=== PATIENT | male | born 2000 | race Caucasian/White ===

== ENCOUNTER 2018-08-03 07:29 | Emergency (ER) | payer SELFPAY ==
[~2018-08-03] VITALS: Ht 195.6 cm; Wt 136.4 kg
[~2018-08-03 07:29] MED LIST: A/B OTIC AS; AMOXICILLI125 MG/5 M OR; AMOXICILLIN500 MG PO; AUGMENTIN875TAB OR; CIPRODEX1 ML AS; CLINDAMYCIN300 M1 PO; FLUCONAZOLE100 MG PO; GARDASIL IM; HAVRIX720 UNI1 IM; MENACTRA PO; MOTRIN400 MG PO; MUPIROCIN2 % EX; OMNICEF300 MG OR; SEPTRA DS1 TAB PO; TAM75CAP PO; TET/DIP TOX1 ML IM; ULTRAM50 M1 PO
[2018-08-03] MEDS ORDERED: CLEOCIN150 MG PO (08:33)
== END 2018-08-03 08:42 | disposition home or self-care (01) | DRG 605 ==
LOC: ED 07:29
PROC: 0HQNXZZ Repair Left Foot Skin, External Approach (ICD-10-PCS; principal; 2018-08-03)
DX: S91.312A Laceration without foreign body, left foot, initial encounter (principal); F17.210 Nicotine dependence, cigarettes, uncomplicated; W26.8XXA Contact with other sharp object(s), not elsewhere classified, initial encounter

== ENCOUNTER 2019-05-19 11:47 | Emergency (ER) | payer SELFPAY ==
[~2019-05-19] VITALS: Ht 195.6 cm; Wt 166.0 kg
[~2019-05-19 11:47] MED LIST changes: +CLEOCIN150 MG PO
[2019-05-19] MEDS ORDERED: MEDDOSEPAK PO (12:54)
[2019-05-19 13:10] VITALS: BP 139/74
== END 2019-05-19 13:10 | disposition home or self-care (01) | DRG 552 ==
LOC: ED 11:47
DX: M54.42 Lumbago with sciatica, left side (principal); F17.290 Nicotine dependence, other tobacco product, uncomplicated

== ENCOUNTER 2020-04-30 11:02 | Emergency (ER) | payer MEDICAID ==
[~2020-04-30 11:02] MED LIST changes: +MEDDOSEPAK PO
[2020-04-30] MEDS ORDERED: CEPHALEXIN500 MG PO (11:41)
[2020-04-30] MEDS ORDERED: BACTRIM DS1 TAB PO (11:41)
[2020-04-30 11:52] VITALS: BP 142/80
== END 2020-04-30 11:52 | disposition home or self-care (01) ==
LOC: ED 11:02
DX: L03.012 Cellulitis of left finger (principal); F17.200 Nicotine dependence, unspecified, uncomplicated

== ENCOUNTER 2020-05-03 08:23 | Emergency (ER) | payer MEDICAID ==
[~2020-05-03] VITALS: Ht 195.6 cm; Wt 136.4 kg
[~2020-05-03 08:23] MED LIST changes: +BACTRIM DS1 TAB PO; +CEPHALEXIN500 MG PO
[2020-05-03 09:00] VITALS: BP 142/92
== END 2020-05-03 09:00 | disposition home or self-care (01) ==
LOC: ED 08:23
DX: L03.012 Cellulitis of left finger (principal); F17.200 Nicotine dependence, unspecified, uncomplicated

== ENCOUNTER 2021-10-04 09:16 | Emergency (ER) | payer OTHER, MEDICAID ==
[~2021-10-04] VITALS: Ht 195.6 cm; Wt 150.0 kg
[2021-10-04 09:16] VITALS: BP 145/84
[2021-10-04] MEDS ORDERED: CEPHALEXIN500 MG PO (10:06)
== END 2021-10-04 10:26 | disposition home or self-care (01) | DRG 605 ==
LOC: ED 09:16
PROC: 0JQN3ZZ Repair Right Lower Leg Subcutaneous Tissue and Fascia, Percutaneous Approach (ICD-10-PCS; principal; 2021-10-04)
DX: S81.811A Laceration without foreign body, right lower leg, initial encounter (principal); E66.9 Obesity, unspecified; W29.8XXA Contact with other powered hand tools and household machinery, initial encounter; Y93.89 Activity, other specified; Y92.89 Other specified places as the place of occurrence of the external cause; Y99.0 Civilian activity done for income or pay; Z68.39 Body mass index [BMI] 39.0-39.9, adult

== ENCOUNTER 2021-10-12 15:25 | Emergency (ER) | payer OTHER, MEDICAID ==
[~2021-10-12] VITALS: Ht 195.6 cm; Wt 136.0 kg
== END 2021-10-12 16:11 | disposition home or self-care (01) | DRG 950 ==
LOC: ED 15:25
DX: S81.811D Laceration without foreign body, right lower leg, subsequent encounter (principal); F17.200 Nicotine dependence, unspecified, uncomplicated; X58.XXXD Exposure to other specified factors, subsequent encounter

== ENCOUNTER 2021-12-26 09:23 | Emergency (ER) | payer MEDICAID ==
[~2021-12-26] VITALS: Ht 195.6 cm; Wt 136.0 kg
[2021-12-26] MEDS ORDERED: AMOX/K CLAV875 M1 PO (10:28)
[2021-12-26 10:43] VITALS: BP 151/85
== END 2021-12-26 10:51 | disposition home or self-care (01) ==
LOC: ED 09:23
DX: R59.0 Localized enlarged lymph nodes (principal); F17.200 Nicotine dependence, unspecified, uncomplicated; E66.9 Obesity, unspecified; Z68.35 Body mass index [BMI] 35.0-35.9, adult; Z20.822 Contact with and (suspected) exposure to COVID-19

== ENCOUNTER 2022-02-14 04:21 | Emergency (ER) | payer MEDICAID ==
[~2022-02-14] VITALS: Ht 195.6 cm; Wt 136.0 kg
[~2022-02-14 04:21] MED LIST changes: +AMOX/K CLAV875 M1 PO
[2022-02-14 04:33] VITALS: BP 134/80
[2022-02-14 04:45] VITALS: BP 128/77
[2022-02-14 05:00] VITALS: BP 121/58
[2022-02-14 05:16] VITALS: BP 165/96
[2022-02-14 05:54] LABS: HEMATOCRIT 44.3 % (39.0-50.0); HEMOGLOBIN 15.2 g/dl (14.0-18.0); IMMATURE GRANULOCYTES 0.1 % (0.0-5.0); MEAN CELL VOLUME 88.2 fL CALC (80.0-100.0); MEAN CORPUSCULAR HGB 30.3 pG CALC (26.0-32.0); MEAN CORPUSCULAR HGB CONC 34.3 g/dL CAL (32.0-36.0); NEUT# 4.93 thou/uL (1.82-7.42); RED BLOOD COUNT 5.02 mill/uL (4.70-6.10); RED CELL DISTRI WIDTH 11.8 % (11.5-15.5)
[2022-02-14 06:09] LABS: ALBUMIN 4.1 g/dL (3.2-5.0); ANION GAP 10 (6-22 (CALC)); BILIRUBIN, TOTAL 0.4 mg/dL (0.0-1.4); BUN 14 mg/dL (9-20); BUN/CREATININE RATIO 15 (12-20 (CALC)); CARBON DIOXIDE 30 mmol/l (22-30); CHLORIDE 98 mmol/l (95-108); CREATININE 0.9 mg/dL (0.7-1.3); GFR > 60 ML/MIN (>=60 (CALC)); GFR FOR AFR.AMER. > 60 ML/MIN (>=60 (CALC)); POTASSIUM 4.1 mmol/l (3.5-5.1); SGOT/AST 33 u/l (17-59); SODIUM 135 mmol/l (137-146); TOTAL PROTEIN 7.6 g/dL (6.3-8.2)
[2022-02-14 06:17] LABS: ALKALINE PHOSPHATASE 66 u/l (38-126)
[2022-02-14 07:21] VITALS: BP 165/96
== END 2022-02-14 07:27 | disposition home or self-care (01) ==
LOC: ED 04:21
PROVIDERS: Family Medicine
DX: B34.9 Viral infection, unspecified (principal); F17.200 Nicotine dependence, unspecified, uncomplicated; Z20.822 Contact with and (suspected) exposure to COVID-19

== ENCOUNTER 2023-04-09 09:16 | Emergency (ER) | payer MEDICAID ==
[2023-04-09] VITALS (10 sets, daily range): BP systolic 120–140; BP diastolic 71–93
[~2023-04-09] VITALS: Ht 195.6 cm; Wt 158.0 kg
[2023-04-09 10:15] LABS: URINE BILIRUBIN - DIPSTICK NEGATIVE (NEGATIVE); URINE BLOOD DIPSTICK NEGATIVE (NEGATIVE); URINE COLOR YELLOW; URINE GLUCOSE - DIPSTICK NEGATIVE (NEGATIVE); URINE KETONE NEGATIVE (NEGATIVE); URINE LEUK ESTERASE NEGATIVE (NEGATIVE); URINE PH 5.5 (4.5-8.0); URINE PROTEIN - DIPSTICK NEGATIVE (NEG-TRACE); URINE SPECIFIC GRAVITY 1.025; URINE UROBILINOGEN - DIPSTICK 0.2 E.U./dL (0.2)
[2023-04-09 10:16] LABS: URINE NITRITE - DIPSTICK NEGATIVE (Negative)
== END 2023-04-09 13:15 | disposition home or self-care (01) ==
LOC: ED 09:16
PROVIDERS: Family Medicine
DX: R10.32 Left lower quadrant pain (principal); F17.200 Nicotine dependence, unspecified, uncomplicated; Z90.49 Acquired absence of other specified parts of digestive tract

== ENCOUNTER 2023-05-14 12:05 | Emergency (ER) | payer MEDICAID ==
[~2023-05-14] VITALS: Ht 195.6 cm; Wt 132.0 kg
[2023-05-14 12:12] VITALS: BP 146/94
[2023-05-14 12:30] VITALS: BP 137/91
[2023-05-14] MEDS ORDERED: AMOX/K CLAV875 M1 PO (12:51)
[2023-05-14 12:56] VITALS: BP 137/91
== END 2023-05-14 13:05 | disposition home or self-care (01) ==
LOC: ED 12:05
DX: H61.23 Impacted cerumen, bilateral (principal); H66.91 Otitis media, unspecified, right ear

== ENCOUNTER 2023-12-27 10:35 | Emergency (ER) | payer OTHER ==
[2023-12-27] VITALS (12 sets, daily range): BP systolic 113–154; BP diastolic 65–100
[~2023-12-27] VITALS: Ht 195.6 cm; Wt 136.0 kg
== END 2023-12-27 14:26 | disposition home or self-care (01) | DRG 563 ==
LOC: ED 10:35
DX: S93.402A Sprain of unspecified ligament of left ankle, initial encounter (principal); S93.602A Unspecified sprain of left foot, initial encounter; F17.220 Nicotine dependence, chewing tobacco, uncomplicated; X50.0XXA Overexertion from strenuous movement or load, initial encounter; Y99.0 Civilian activity done for income or pay